=== PATIENT | male | born 1975 | race Caucasian/White ===

== ENCOUNTER 2020-09-20 10:22 | Emergency (ER) | payer BC, OTHER ==
[~2020-09-20 10:22] MED LIST: CLARITIN10 M2 PO; ELIQUIS2.5 MG PO; LASIX40 MG PO; LISINOPRIL2.5 MG PO; SOTALOL80 MG PO
[2020-09-20 11:26] LABS: HEMOGLOBIN 16.7 gm/dl (14.0-17.5); RED BLOOD COUNT 5.21 M/UL (4.20-5.50); WHITE BLOOD COUNT 9.7 K/UL (4.5-11.0)
[2020-09-20 11:50] LABS: BUN/CREATININE RATIO 10 (0-10)
== END 2020-09-20 15:20 | disposition home or self-care (01) ==
LOC: ER1 10:22
PROVIDERS: Emergency Medicine
DX: I49.3 Ventricular premature depolarization (principal); R53.1 Weakness; I48.91 Unspecified atrial fibrillation; Z79.01 Long term (current) use of anticoagulants; Z98.890 Other specified postprocedural states
CPT/HCPCS: 71045; 80053; 83735; 83880; 84439; 84443; 85025; 93005; 99285

== ENCOUNTER 2021-07-18 08:16 | Emergency (ER) | payer BC, OTHER ==
[2021-07-18] MEDS ORDERED: BENZONATATE100 MG PO (10:49)
== END 2021-07-18 11:00 | disposition home or self-care (01) ==
LOC: ER1 08:16
DX: J06.9 Acute upper respiratory infection, unspecified (principal); I48.91 Unspecified atrial fibrillation; Z20.822 Contact with and (suspected) exposure to COVID-19
CPT/HCPCS: 71045; 99283; U0002